=== PATIENT | female | born 1975 | race Caucasian/White ===

== ENCOUNTER 2022-09-09 12:45 | Emergency (ER) | payer OTHER ==
[2022-09-09 13:08] VITALS: BP 143/83; PULSE 87; RESP 18; TEMP 97.9
[2022-09-09] MEDS ORDERED: SODIUM CHLORIDE 0.9% 1,000 ML IV STA (13:32)
[2022-09-09 13:50] LABS: Anisocytosis Moderate; Appearance,Urine Clear (Clear); Basophils % (A) 0 %; Bilirubin,Urine Negative (Negative); Blood,Urine Negative (Negative); Color,Urine Yellow; Eosinophils # (A) 0.6 k/uL (0-0.7); Eosinophils % (A) 5 %; Glucose,Urine (UA) Negative (Negative); HGB 11.5 gm/dL (11.4-16.0); Hypochromasia Slight; Ketones,Urine Negative (Negative); Leukocyte Esterase,Urine Negative (Negative); Lymphocytes % (A) 17 %; MCH 23.6 pg (25.0-35.0); MCHC 31.1 g/dL (31.0-37.0); MCV 75.9 fL (80.0-100.0); Mean Platelet Volume 6.9; Microcytosis Moderate; Monocytes % (A) 8 %; Neutrophils % (A) 67 %; Nitrite,Urine Negative (Negative); Platelet Count 501 k/uL (150-450); Protein,Urine Trace (Negative); RBC 4.88 m/uL (3.80-5.40); RDW 20.2 % (11.5-15.5); Specific Gravity,Urine 1.032 (1.001-1.035); Urobilinogen,Urine <2.0 mg/dL (<2.0)
--- NOTE | 2022-09-09 13:56 | XR ---
EXAMINATION TYPE: XR chest 2V DATE OF EXAM: 09/09/2022 1:53 PM COMPARISON: None TECHNIQUE: XR chest 2V Frontal and lateral views of the chest. CLINICAL INDICATION:Female, 46 years old with history of dyspnea; FINDINGS: Lungs/Pleura: There is no evidence of pleural effusion, focal consolidation, or pneumothorax. Pulmonary vascularity: Unremarkable. Heart/mediastinum: Cardiomediastinal silhouette is unremarkable. Musculoskeletal: No acute osseous pathology. IMPRESSION: No acute cardiopulmonary disease/process.
--- NOTE | 2022-09-09 13:57 | ED ---
Abdominal Pain HPI - General Chief Complaint: Abdominal Pain Stated Complaint: abd strain sent by Dr Sinha Seen by Provider: 09/09/22 13:10 Source: patient, RN notes reviewed Mode of arrival: ambulatory Limitations: no limitations - History of Present Illness Initial Comments: Patient is a 46-year-old female present today to the emergency room at the direction of urgent care and her primary care provider for further evaluation of persistent right lower quadrant pain that has been waxing and waning. She was evaluated at [place] emergency room when symptoms began approximately 3 weeks ago. Workup at that time was overall negative and she was advised that she had a abdominal wall muscle strain. She was prescribed lidocaine patches along with naproxen to treat her symptoms and was advised to avoid heavy lifting. She has been taking medication as prescribed but due to being. Her place of employment she has not been able to adhere to lifting restrictions. She reports that her symptoms have persisted. She states that her symptoms all began approximately 3 weeks ago after an upper respiratory infection which she was coughing frequently. She reports that during one of these coughing spells she felt and heard a popping-like sensation in her abdominal region. She notes that her respiratory symptoms have resolved but her abdominal pain has persisted. She denies any chest pain, shortness of breath, upper abdominal pain, flank pain, nausea, vomiting, diarrhea, headache, dizziness, dysuria, hematuria, urinary frequency, fevers or chills. She has a past medical history significant for GERD and migraines. - Related Data Home Medications Medication Instructions Recorded Confirmed Ascorbic Acid [Vitamin C] 500 mg PO HS 09/09/22 09/09/22 Aspirin/Acetaminophen/Caffeine 2 tab PO Q6H PRN 09/09/22 09/09/22 [Excedrin Migraine Caplet] Biotin 5 mg PO HS 09/09/22 09/09/22 Cholecalciferol [Vitamin D3 (25 50 mcg PO HS 09/09/22 09/09/22 Mcg = 1000 Iu)] FLUoxetine HCL [PROzac] 20 mg PO DAILY 09/09/22 09/09/22 FLUoxetine HCL [PROzac] 40 mg PO DAILY 09/09/22 09/09/22 Ferrous Gluconate 324 mg PO HS 09/09/22 09/09/22 L.acidoph,Paracasei, B.lactis 1 cap PO HS 09/09/22 09/09/22 [Probiotic] Lidocaine 5% Patch [Lidoderm] 1 patch TOPICAL DAILY PRN 09/09/22 09/09/22 Naproxen [Naprosyn] 500 mg PO BID PRN 09/09/22 09/09/22 Pantoprazole Sodium [Protonix] 40 mg PO DAILY 09/09/22 09/09/22 Vitamin B Complex 1 cap PO HS 09/09/22 09/09/22 Allergies Allergy/AdvReac Type Severity Reaction Status Date / Time azithromycin AdvReac Diarrhea Verified 09/09/22 14:52 Review of Systems ROS Statement: Those systems with pertinent positive or pertinent negative responses have been documented in the HPI. ROS Other: All systems not noted in ROS Statement are negative. Past Medical History Past Medical History: GERD/Reflux Additional Past Medical History / Comment(s): migraines History of Any Multi-Drug Resistant Organisms: None Reported Additional Past Surgical History / Comment(s): oral sx Past Psychological History: Depression Smoking Status: Never smoker Past Alcohol Use History: Rare Past Drug Use History: None Reported General Exam - General Exam Comments Initial Comments: GENERAL: No acute distress, well developed, well nourished. Obese. HEENT: Normocephalic, atraumatic. Pupils equal, round, reactive to light. Moist mucous membranes. LUNGS: No respiratory distress. Clear to auscultation, no adventitious sounds, no use of accessory muscles. HEART: Regular rate and rhythm without murmur, rub, or gallop. ABDOMEN: Normal bowel sounds. Soft, non-tender, non-distended. No significant change and right lower quadrant pain/tenderness upon palpation. No guarding or rebound tenderness. BACK: Normal inspection. No CVA tenderness. EXTREMITIES: No edema. No tenderness. Moves all extremities. NEUROLOGIC: Alert & oriented x 3. CN II-XII grossly intact. PSYCHIATRIC: Normal affect and behavior. DERMATOLOGIC: Skin intact, without rashes or lesions noted. Limitations: no limitations Course Vital Signs 09/09/22 13:02 Temperature 97.9 F Pulse Rate 87 Respiratory 18 Rate Blood Pressure 143/83 O2 Sat by Pulse 98 Oximetry Medical Decision Making - Medical Decision Making Was pt. sent in by a medical professional or institution (, PA, BRANCH OPERATION EVALUATION MANAGER, urgent care, hospital, or jail...) When possible be specific @ -No Did you speak to anyone other than the patient for history (EMS, parent, family, police, friend...)? What history was obtained from this source @ -No Did you review nursing and triage notes (agree or disagree)? Why? @ -I reviewed and agree with nursing and triage notes Were old charts reviewed (outside hosp., previous admission, EMS record, old EKG, old radiological studies, urgent care reports/EKG's, jail records)? Report findings @ -Yes, I reviewed laboratory studies and computed tomography scan report available from patient's portal recently completed at [place] emergency room. Differential Diagnosis (chest pain, altered mental status, abdominal pain women, abdominal pain men, vaginal bleeding, weakness, fever, dyspnea, syncope, headache, dizziness, GI bleed, back pain, seizure, CVA, palpatations, mental health, musculoskeletal)? @ -Differential Abdominal Pain Women: Appendicitis, Cholecystitis, diverticulosis, ischemic bowel, pancreatitis, hepatitis, UTI, gastroenteritis, AAA, incarcerated hernia, bowel obstruction, constipation, inflammatory bowel, hepatitis, peptic ulcer disease, splenic infar ction, perforated viscus, vulvitis, ovarian torsion, PID, kidney stone, placenta abruption, this is not meant to be an all-inclusive list EKG interpreted by me (3pts min.). @ -None done X-rays interpreted by me (1pt min.). @ -None done CT interpreted by me (1pt min.). @ -CT abdomen and pelvis with contrast: Scattered fecal content in the colon no evidence of obstruction, appendicitis or free air in the abdomen. U/S (1pt. min.). @ -Ultrasound pelvis: Report per radiologist not interpreted by me right ovary follicles. Anteverted uterus with at least 2 uterine fibroids. No apparent portion. What testing was considered but not performed or refused? (CT, X-rays, U/S, labs)? Why? @ -None What meds were considered but not given or refused? Why? @ -None Did you discuss the management of the patient with other professionals (professionals i.e. , PA, BRANCH OPERATION EVALUATION MANAGER, lab, RT, psych nurse, social human services assistants, facility sales and admin, teacher, transit police officer, watch caser)? Give summary @ -No Was smoking cessation discussed for >3mins.? @ -No Was critical care preformed (if so, how long)? @ -No Were there social determinants of health that impacted care today? How? (Homelessness, low income, unemployed, alcoholism, drug addiction, transportation, low edu. Level, literacy, decrease access to med. care, nursing home, rehab)? @ -No Was there de-escalation of care discussed even if they declined (Discuss DNR or withdrawal of care, Hospice)? DNR status @ -No What co-morbidities impacted this encounter? (DM, HTN, Smoking, COPD, CAD, Cancer, CVA, ARF, Chemo, Hep., AIDS, mental health diagnosis, sleep apnea, morbid obesity)? @ -None Was patient admitted / discharged? Hospital course, mention meds given and route, prescriptions, significant lab abnormalities, going to OR and other pertinent info. @ -46-year-old female presented to the emergency room with continued complaints of right lower abdominal pain which waxes and wanes recently worked up and advise abdominal wall strain she also reports some shortness of breath at the initiation of her symptomatology no shortness of breath at this time. Utilizing treatment prescribed without improvement. No other systemic symptoms. Abnormalities on recent blood work showed hyperkalemia, thrombocytosis and anemia will repeat labs including CBC, CMP, amylase, lipase, lactic acid, magnesium, urinalysis and troponin. Recent test negative at [place] will not repeat. Will obtain CT of the abdomen and pelvis with contrast and chest x-ray. Will give 1 L fluid bolus. CBC shows mild leukocytosis 12.0 neutrophils 8.0 anemia resolved platelet count elevated 501. CMP demonstrates elevated BUN 19 creatinine normal electrolytes normal liver function normal. Alkaline phosphate amylase and lipase all normal troponin negative. Urinalysis with trace protein present on previous urinalysis as well no other abnormalities. CT of the abdomen without acute findings with the exception of possible constipation given fecal debris recommends ultrasound for further evaluation of reproductive organs is concerned regarding pain in this location. Chest x-ray negative for acute cardiopulmonary process. Given waxing and waning of symptoms and location will proceed with pelvic ultrasound. Pelvic ultrasound demonstrates right ovarian follicles without ovarian torsion an anteverted uterus with at least 2 fibroids. Waxing and waning right pain consistent with both in follicular pain. No indication for further diagnostic imaging or laboratory studies at this time. Will keep off work for 3-4 days to allow for improvement in pain prior to returning to work. Encouraged continued use of anti-inflammatories of naproxen or Motrin as needed for pain. Encouraged follow-up with primary care provider and possible referral to LABORATORY DEVELOPMENT TECHNICIAN for further evaluation and treatment of uterine fibroids. Will discharge home in stable condition advising follow-up with primary care provider for uterine fibroids and abdominal pain. Undiagnosed new problem with uncertain prognosis? @ -No Drug Therapy requiring intensive monitoring for toxicity (Heparin, Nitro, Insulin, Cardizem)? @ -No Were any procedures done? @ -No Diagnosis/symptom? @ -Abdominal pain Acute, or Chronic, or Acute on Chronic? @ -Acute Uncomplicated (without systemic symptoms) or Complicated (systemic symptoms)? @ -Uncomplicated Side effects of treatment? @ -No Exacerbation, Progression, or Severe Exacerbation? @ -No Poses a threat to life or bodily function? How? (Chest pain, [place], [place], pneumonia, PE, COPD, DKA, ARF, appy, cholecystitis, CVA, Diverticulitis, Homicidal, Suicidal, threat to staff... and all critical care pts) @ -No Diagnosis/symptom? @ -Uterine fibroids Acute, or Chronic, or Acute on Chronic? @ -Chronic Uncomplicated (without systemic symptoms) or Complicated (systemic symptoms)? @ -Uncomplicated Side effects of treatment? @ -none Exacerbation, Progression, or Severe Exacerbation] @ -no Poses a threat to life or bodily function? @ -no. Case discussed with Dr. Cruz - Lab Data Result diagrams: 09/09/22 13:40 09/09/22 13:40 Lab Results 09/09/22 09/09/22 09/09/22 Range/Units 13:40 13:40 13:40 WBC 12.0 H (3.8-10.6) k/uL RBC 4.88 (3.80-5.40) m/uL Hgb 11.5 (11.4-16.0) gm/dL Hct 37.0 (34.0-46.0) % MCV 75.9 L (80.0-100.0) fL MCH 23.6 L (25.0-35.0) pg MCHC 31.1 (31.0-37.0) g/dL RDW 20.2 H (11.5-15.5) % Plt Count 501 H (150-450) k/uL MPV 6.9 Neutrophils % 67 % Lymphocytes % 17 % Monocytes % 8 % Eosinophils % 5 % Basophils % 0 % Neutrophils # 8.0 H (1.3-7.7) k/uL Lymphocytes # 2.0 (1.0-4.8) k/uL Monocytes # 1.0 (0-1.0) k/uL Eosinophils # 0.6 (0-0.7) k/uL Basophils # 0.0 (0-0.2) k/uL Hypochromasia Slight Anisocytosis Moderate Microcytosis Moderate Sodium 138 (137-145) mmol/L Potassium 4.2 (3.5-5.1) mmol/L Chloride 102 (98-107) mmol/L Carbon Dioxide 26 (22-30) mmol/L Anion Gap 10 mmol/L BUN 19 H (7-17) mg/dL Creatinine 0.69 (0.52-1.04) mg/dL Est GFR (CKD-EPI)AfAm >90 (>60 ml/min/1.73 sqM) Est GFR (CKD-EPI)NonAf >90 (>60 ml/min/1.73 sqM) Glucose 96 (74-99) mg/dL Plasma Lactic Acid Artemio (0.7-2.0) mmol/L Calcium 8.8 (8.4-10.2) mg/dL Magnesium 1.8 (1.6-2.3) mg/dL Total Bilirubin 0.3 (0.2-1.3) mg/dL AST 24 (14-36) U/L ALT 21 (4-34) U/L Alkaline Phosphatase 98 (38-126) U/L Troponin I (0.000-0.034) ng/mL Total Protein 7.6 (6.3-8.2) g/dL Albumin 4.0 (3.5-5.0) g/dL Amylase 53 (30-110) U/L Lipase 92 (23-300) U/L Urine Color Yellow Urine Appearance Clear (Clear) Urine pH 6.0 (5.0-8.0) Ur Specific [place] 1.032 (1.001-1.035) Urine Protein Trace H (Negative) Urine Glucose (UA) Negative (Negative) Urine Ketones Negative (Negative) Urine Blood Negative (Negative) Urine Nitrite Negative (Negative) Urine Bilirubin Negative (Negative) Urine Urobilinogen <2.0 (<2.0) mg/dL Ur Leukocyte Esterase Negative (Negative) 09/09/22 09/09/22 Range/Units 13:40 13:40 WBC (3.8-10.6) k/uL RBC (3.80-5.40) m/uL Hgb (11.4-16.0) gm/dL Hct (34.0-46.0) % MCV (80.0-100.0) fL MCH (25.0-35.0) pg MCHC (31.0-37.0) g/dL RDW (11.5-15.5) % Plt Count (150-450) k/uL MPV Neutrophils % % Lymphocytes % % Monocytes % % Eosinophils % % Basophils % % Neutrophils # (1.3-7.7) k/uL Lymphocytes # (1.0-4.8) k/uL Monocytes # (0-1.0) k/uL Eosinophils # (0-0.7) k/uL Basophils # (0-0.2) k/uL Hypochromasia Anisocytosis Microcytosis Sodium (137-145) mmol/L Potassium (3.5-5.1) mmol/L Chloride (98-107) mmol/L Carbon Dioxide (22-30) mmol/L Anion Gap mmol/L BUN (7-17) mg/dL Creatinine (0.52-1.04) mg/dL Est GFR (CKD-EPI)AfAm (>60 ml/min/1.73 sqM) Est GFR (CKD-EPI)NonAf (>60 ml/min/1.73 sqM) Glucose (74-99) mg/dL Plasma Lactic Acid Artemio 1.0 (0.7-2.0) mmol/L Calcium (8.4-10.2) mg/dL Magnesium (1.6-2.3) mg/dL Total Bilirubin (0.2-1.3) mg/dL AST (14-36) U/L ALT (4-34) U/L Alkaline Phosphatase (38-126) U/L Troponin I <0.012 (0.000-0.034) ng/mL Total Protein (6.3-8.2) g/dL Albumin (3.5-5.0) g/dL Amylase (30-110) U/L Lipase (23-300) U/L Urine Color Urine Appearance (Clear) Urine pH (5.0-8.0) Ur Specific [place] (1.001-1.035) Urine Protein (Negative) Urine Glucose (UA) (Negative) Urine Ketones (Negative) Urine Blood (Negative) Urine Nitrite (Negative) Urine Bilirubin (Negative) Urine Urobilinogen (<2.0) mg/dL Ur Leukocyte Esterase (Negative) - Radiology Data Radiology results: report reviewed, image reviewed Disposition Clinical Impression: Abdominal pain, Uterine fibroid Disposition: HOME SELF-CARE Condition: Stable Instructions (If sedation given, give patient instructions): Endometriosis (ED), Ovarian Cyst (ED), Abdominal Pain (ED) Additional Instructions: Please continue to utilize naproxen or Motrin as needed for pain. It is recommended that you follow-up with your primary care provider for referral to LABORATORY DEVELOPMENT TECHNICIAN for further evaluation and treatment of uterine fibroids. Please return to the Emergency Department if symptoms worsen or any other concerns. Is patient prescribed a controlled substance at d/c from ED?: No Referrals: Mehnaz Terry DO [Primary Care Provider] - 1-2 days Time of Disposition: 16:46
--- NOTE | 2022-09-09 14:26 | CT ---
EXAMINATION TYPE: CT abdomen pelvis w con DATE OF EXAM: 09/09/2022 COMPARISON: None HISTORY: RLQ pain CT DLP: 1196.3 mGycm Automated exposure control for dose reduction was used. CONTRAST: CT scan of the abdomen pelvis is performed with IV Contrast, patient injected with 100 mL of Isovue 3 00. FINDINGS- LUNG BASES- No significant abnormality is appreciated. LIVER/GB- No gross abnormality is appreciated. PANCREAS- No gross abnormality is seen. SPLEEN- No gross abnormality is seen. ADRENALS- No gross abnormality is seen. KIDNEYS/BLADDER- no hydronephrosis nephrolithiasis or renal mass. BOWEL- there is no evidence of bowel obstruction. The appendix is not seen with certainty. Retained debris throughout the colon correlate for constipation. There is a small hiatal hernia. LYMPH NODES- No greater than 1cm abdominal or pelvic lymph nodes are appreciated. OSSEOUS STRUCTURES- hypertrophic and degenerative change of the spine.. OTHER- aorta of normal caliber. IMPRESSION- 1. Appendix is not seen but there is no evidence of evidence of inflammatory change within the right lower quadrant. 2. Correlate for constipation 3. No hydronephrosis or nephrolithiasis. 4. If there is concern for uterine or ovarian abnormality consider pelvic ultrasound.
[2022-09-09 14:27] LABS: ALT 21 U/L (4-34); AST 24 U/L (14-36); African American GFR (CKD) >90 (>60 ml/min/1.73 sqM); Alkaline Phosphatase 98 U/L (38-126); Amylase 53 U/L (30-110); Anion Gap 10 mmol/L; Blood Urea Nitrogen 19 mg/dL (7-17); Calcium 8.8 mg/dL (8.4-10.2); Carbon Dioxide 26 mmol/L (22-30); Chloride 102 mmol/L (98-107); Glucose 96 mg/dL (74-99); Lipase 92 U/L (23-300); Magnesium 1.8 mg/dL (1.6-2.3); Non-African American GFR(CKD) >90 (>60 ml/min/1.73 sqM); Potassium 4.2 mmol/L (3.5-5.1); Sodium 138 mmol/L (137-145); Total Bilirubin 0.3 mg/dL (0.2-1.3); Total Protein 7.6 g/dL (6.3-8.2)
--- NOTE | 2022-09-09 16:14 | US ---
EXAMINATION TYPE: US transvaginal DATE OF EXAM: 09/09/2022 COMPARISON: CT abdomen pelvis of the same date CLINICAL INDICATION: Female, 46 years old with history of right lower abdominal pain; Right pelvic pa in TECHNIQUE: Transvaginal (TV). Date of LMP: 09/02/22 EXAM MEASUREMENTS: Uterus: 8.2 x 4.1 x 5.0 cm Endometrial Stripe: 0.8 cm Right Ovary: 2.3 x 1.3 x 1.4 cm Left Ovary: 2.1 x 2.6 x 2.0 cm 1. Uterus: Anteverted heterogeneous. at least 2 fibroids noted = 2.0 x 1.5 x 1.9cm posteriorly and 1.5 x 1.3 x 1.5cm anteriorly 2. Endometrium: appears wnl 3. Right Ovary: follicles 4. Left Ovary: dominant follicle = 1.7cm Spectral, color and waveform doppler imaging shows good arterial and venous flow within the ovaries ; there is no evidence for ovarian torsion. 5. Bilateral Adnexa: wnl 6. Posterior cul-de-sac: wnl Incidental nabothian cyst in the cervix. IMPRESSION: 1. No acute pelvic process. No evidence for ovarian torsion. 2. Fibroid changes of the uterus.
== END 2022-09-09 17:19 | disposition home or self-care (01) ==
LOC: EC 12:45
DX: D25.9 Leiomyoma of uterus, unspecified (principal); K21.9 Gastro-esophageal reflux disease without esophagitis; F32.A Depression, unspecified; Z79.82 Long term (current) use of aspirin; Z79.899 Other long term (current) drug therapy; Z88.1 Allergy status to other antibiotic agents
CPT/HCPCS: 36415; 80053; 82150; 83605; 83690; 83735; 84484; 85025; 81003; 71046; 93975; 76830; 74177; 99285; 96360; Q9967

== ENCOUNTER 2024-02-23 06:48 | Day surgery (SDC) | payer OTHER ==
[2024-02-21 11:49] VITALS: BMI 39.9
[2024-02-23 07:21] VITALS: TEMP 98.1
[2024-02-23] MEDS: IV FLUID CONTINUATION 1,000 ML IV ONE (07:27)
[2024-02-23] MEDS: LACTATED RINGERS 1,000 ML IV SCH (07:28)
[2024-02-23] MEDS ORDERED: PROPOFOL 10 MG/ML 20 ML VIAL IV ONE (08:08)
[2024-02-23] MEDS ORDERED: LIDOCAINE 1% INJ 10MG/ML (20 ML MDV) ONE (08:08)
--- NOTE | 2024-02-23 08:30 | P.PCN ---
Date of Procedure: 02/23/24 Procedure(s) Performed: BRIEF HISTORY: Patient is a 48-year-old pleasant white female scheduled for an elective colonoscopy as a part of screening for colon cancer. PROCEDURE PERFORMED: Colonoscopy. PREOPERATIVE DIAGNOSIS: Screening for colon cancer. IV sedation per Anesthesia. PROCEDURE: After informed consent was obtained, the patient, was brought into the endoscopy unit. IV sedation was administered by Anesthesia under continuous monitoring. Digital rectal examination was normal. Initially the Olympus CF-160 flexible video colonoscope was then inserted in the rectum, gradually advanced into the cecum without any difficulty. Careful examination was performed as the scope was gradually being withdrawn. Ileocecal valve and the appendiceal orifice were visualized and appeared normal. Prep was excellent. Mucosa of the cecum, ascending colon, transverse colon, descending colon, sigmoid colon, and rectum appeared normal. Retroflexion was performed in the rectum and no lesions were seen. The patient tolerated the procedure well. IMPRESSION: Normal-appearing colon from rectum to cecum with no evidence of colorectal neoplasia. RECOMMENDATIONS: Findings of this examination were discussed with the patient as well as her family. She was advised to have repeat screening colonoscopy in 10 years..
[2024-02-23 08:42] VITALS: RESP 18
[2024-02-23 09:01] VITALS: BP 116/65; PULSE 92
== END 2024-02-23 09:04 | disposition home or self-care (01) ==
LOC: ORWHC2ENDO 06:48
PROVIDERS: ATTEND Internal Medicine Gastroenterology
CPT/HCPCS: 45378; 81025